=== PATIENT | female | born 1950 | race Caucasian/White ===

== ENCOUNTER 2019-02-20 03:41 | Outpatient (CLI) | payer MEDICARE, OTHER, SELFPAY ==
--- NOTE | 2019-02-20 10:24 | DI.US_ITS ---
SYMPTOMS/DIAGNOSIS: RETAINED INTRAUTERINE DEVICE, PLACED IN 1987, SURVEILLANCE, Z30.431 PELVIC ULTRASOUND: Comparison is made with March,. Transabdominal and transvaginal exams were performed. An IUD is seen within the endometrium. This does not appear changed from the previous exam. The uterus measures 4.6 x 2.8 x 4.3 cm. No fibroids are seen. The endometrium is not visible secondary to the IUD. A 1.7 cm cyst is seen on the right ovary. A 2.7 cm solid-appearing lesion with calcification is noted on the left ovary. IMPRESSION: Retained IUD within the endometrium. A 2.7 cm solid mass with calcification. A CT or MRI could be considered for further evaluation.
--- NOTE | 2019-02-20 10:24 | DI.MAMMO_ITS ---
SYMPTOM/DIAGNOSIS: SCREENING Z12.31 BILATERAL SCREENING MAMMOGRAM: Mammograms were interpreted according to the usual protocol including computer analysis with CAD system, tomosynthesis and C view imaging. Comparison is made with exams from 2011 through 2017. No suspicious masses or suspicious microcalcifications are seen. There has been no significant change. IMPRESSION: Category 1, negative mammogram. Yearly screening mammography is recommended. Breast density category B MQSA ASSESSMENT OF FINDINGS: Negative. Category 1. Patient will receive a letter notifying them of these results. BI-RADS category B. There are scattered areas of fibroglandular density.
== END 2019-02-20 04:01 ==
PROVIDERS: PCP Family Medicine; Visit Provider Nurse Practitioner Family
DX: Z30.431 Encounter for routine checking of intrauterine contraceptive device (principal); Z12.31 Encounter for screening mammogram for malignant neoplasm of breast
CPT/HCPCS: 77063; 77067; 76830; 76856

== ENCOUNTER 2019-04-10 06:07 | Day surgery (SDC) | payer MEDICARE, OTHER, SELFPAY ==
[2019-04-10 06:17] VITALS: BP 114/69; PULSE 63; RESP 16; TEMP 36.1; O2SAT 96
[2019-04-10] MEDS: Lactated Ringers 1,000 ML 125 ML IV (06:28)
--- NOTE | 2019-04-10 08:20 | ENDOMET_PTH ---
PATIENT: Holly Alejandre LOC: [facility] U#:[id number] AGE/SX: 68/F ROOM: RE04/10/[address]: Abhinav Smith MD : [id number] BED: DIS: 04/10/2019 SPEC #: [id number] RECD: 04/10/19 12:37 STATUS: CAMILO REQ #: [id number] BRISSA: 04/10/19 08:[address]: Abhinav Smith DEPT: Surgical Specimen RECD BY: Sasha Huston ENTERED: 04/10/19 12:40 SP TYPE: Endomet OTHR DR: Aliza Pride MD Tissues: 1 - FOREIGN BODY 2 - ENDOMETRIUM BX/CURRETTE Procedures: GROSS AND MICRO LEVEL 4 GROSS LEVEL 1 Comments: [id number]
[2019-04-10] MEDS: Lidocaine 1% Multi-Dose 50 ML VIAL (08:23)
[2019-04-10 08:35] VITALS: BP 91/64; PULSE 58; RESP 13; TEMP 36.7; O2SAT 100
[2019-04-10 08:40] VITALS: BP 102/71; PULSE 62; RESP 13; TEMP 36.7; O2SAT 100
[2019-04-10 08:45] VITALS: BP 103/77; PULSE 66; RESP 11; TEMP 36.7; O2SAT 2
[2019-04-10 08:55] VITALS: BP 105/68; PULSE 70; RESP 11; TEMP 36.6; O2SAT 2
--- NOTE | 2019-04-10 11:21 | W.PM.OP ---
Date of service: 04/10/19 Time of Service: 11:21 Operative Note Operative Note DATE OF PROCEDURE: 04/10/19 PRE-OP DIAGNOSIS: Retained IUD POST-OP DIAGNOSIS: same SURGEON: Abhinav Smith ANESTHESIA: ARETHA ESTIMATED BLOOD LOSS: 5 PATHOLOGY: other (1. Endometrial curettings 2. Lippes Loop IUD) COMPLICATIONS: None Patient was transported to: PACU Indications: IUD retained x 30 years Findings: 1. Lippes loop IUD 2. Intrauterine synechiae. Procedure Description: Patient was taken to the operating room and after an adequate level of general anesthesia was obtained the patient was placed in lithotomy position. The patient was prepped and draped in usual sterile manner. A weighted speculum was placed in the vagina with good visualization of the cervix. A paracervical block with 10 cc 1% plain lidocaine solution was instilled. The anterior lip of the cervix was grasped with a single-tooth tenaculum. The cervix was gently dilated with Hegar dilators. The 5 mm 30 degree hysteroscope with normal saline distention media was advanced to the cervix without difficulty. A polypoid region was noted just inferior to IUD. 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 The IUD was easily identified. The hysteroscope was removed. The cavity was explored with polyp forceps and the IUD was removed intact. A sharp curettage was performed and specimens were submitted to pathology. A second pass with a hysteroscope was made in the polypoid area was no longer noted and may simply have been artifact from the intrauterine synechiae in the IUD. The procedure was concluded at this point. All instrumentation was removed. Sponge lap and needle counts were correct conclusion of the procedure. The patient was transferred to PACU stable condition.
== END 2019-04-10 10:05 | disposition home or self-care (01) ==
PROVIDERS: PCP Family Medicine; Visit Provider Obstetrics & Gynecology
PROC: 0UDB8ZZ Extraction of Endometrium, Via Natural or Artificial Opening Endoscopic (ICD-10-PCS; CPT 58558; principal; 2019-04-10 07:30)
DX: T83.32XA Displacement of intrauterine contraceptive device, initial encounter (principal); N71.1 Chronic inflammatory disease of uterus
CPT/HCPCS: 58562; 88300; 88305; J1100; J1885; J2250; J2405; J3010

== ENCOUNTER → 2020-02-19 11:43 | Outpatient (BNVA) | payer MEDICARE, OTHER, SELFPAY | PROVIDERS: PCP Family Medicine; Referring Provider Family Medicine; Visit Provider Orthopaedic Surgery | DX: M72.0 Palmar fascial fibromatosis [Dupuytren] (principal); M65.341 Trigger finger, right ring finger | CPT/HCPCS: 99203; 99214 ==

== ENCOUNTER 2020-02-27 00:46 | Outpatient (CLI) | payer MEDICARE, OTHER, SELFPAY ==
--- NOTE | 2020-02-27 07:00 | DI.MAMMO_ITS ---
EXAM: MAMMO SCREENING CLINICAL HISTORY: screening,z12.39 TECHNIQUE: Mammograms were interpreted according to the usual protocol including computer analysis w [employer] CAD system, tomosynthesis and C-view imaging. COMPARISON: 2010 through 2018 FINDINGS: The breasts are composed of scattered fibroglandular densities, Breast Density category B. No suspicious masses or suspicious microcalcifications are seen. No skin thickening or abnormal axillary lymph nodes are seen. There has been no significant change from prior exams. IMPRESSION: BI-RADS Category 1, Negative mammogram Yearly screening mammography is recommended. Breast Density Category B, scattered fibroglandular densities. A negative radiographic report should not delay biopsy if a dominant or clinically suspicious mass is present. Up to ten percent of cancers are not identified on mammography. A negative report may reinforce clinical impression. Adenosis and dense breasts may obscure an underlying neoplasm. False positive reports average 6 to 10%. Patient will receive a letter notifying them of these results.
== END 2020-02-27 01:06 ==
PROVIDERS: PCP Family Medicine; Visit Provider Family Medicine
DX: Z12.31 Encounter for screening mammogram for malignant neoplasm of breast (principal); R92.2 Inconclusive mammogram
CPT/HCPCS: 77063; 77067

== ENCOUNTER 2020-02-27 01:36 | Outpatient (CLI) | payer MEDICARE, OTHER, SELFPAY ==
[2020-02-27 10:36] LABS: Calculated LDL 175 mg/dL (<100); Cholesterol 253 mg/dL (<200); Glucose 99 mg/dL (74-106); HDL Cholesterol 69 mg/dL (40-60); Triglyceride 46 mg/dL (<150)
== END 2020-02-27 01:56 ==
PROVIDERS: PCP Family Medicine; Visit Provider Family Medicine
DX: Z13.220 Encounter for screening for lipoid disorders (principal); Z13.1 Encounter for screening for diabetes mellitus
CPT/HCPCS: 36415; 80061; 82947

== ENCOUNTER 2020-04-03 07:52 | Outpatient (CLI) | payer MEDICARE, OTHER, SELFPAY ==
[2020-04-04 23:40] LABS: COVID-19 RT-PCR Result NEGATIVE (Negative)
== END 2020-04-03 08:12 ==
PROVIDERS: PCP Family Medicine; Visit Provider Orthopaedic Surgery
DX: Z11.59 Encounter for screening for other viral diseases (principal); Z01.818 Encounter for other preprocedural examination
CPT/HCPCS: U0003

== ENCOUNTER 2020-04-06 06:07 | Day surgery (SDC) | payer MEDICARE, OTHER, SELFPAY ==
[2020-04-06 06:20] VITALS: BP 109/70; PULSE 62; RESP 20; TEMP 36.3; O2SAT 98
[2020-04-06] MEDS: Lactated Ringers 1,000 ML 80 ML IV (07:15)
[2020-04-06] MEDS: ceFAZolin 1 GM/50 ML BAG IVPB (07:43)
--- NOTE | 2020-04-06 09:09 | PDOC.DSDIS_ITS ---
Discharge Plan Disposition Patient Disposition: HOME Condition: Good Discharge Details Attending Provider: Johnny Magallon Primary Care Provider: Aliza Pride Home Meds and New Rx's Prescriptions: New hydrocodone-acetaminophen 5-325 mg tablet 1 tab PO Q6H PRN (Reason: pain) Qty: 7 RF: 0 Discharge Instructions Additional Instructions: Try to elevate L hand above heart level as much as possible for next 48 hours. Keep dressings L hand dry until return in one week to 's office. Keep dressings on R hand dry for 48 hours. After 48 hours, may remove dressings. May then shower or bathe and get R hand incision wet. Leave incision in R palm uncovered when it is dry and sealed. Bend and straighten fingers of both hands 10 times/hour when awake to decrease swelling. May use both hands as much as your discomfort allows. Take tylenol or ibuprofen for mild pain. Take hydrocodone for breakthru pain, if needed. Follow up with in one week. Referrals: Johnny Magallon MD [ [facility] STAFF PHYSICIAN] - (f/u in one week) Activity:: Activity as Tolerated Diet:: As Tolerated Discharge Orders Discharge Orders: Discharge Order (Routine); Ordered 04/06/20 Ordered By: Johnny Magallon DS: Diagnosis Discharge Diagnosis (1) Palmar fasciitis: Status: Acute (2) Trigger finger, right ring finger: Status: Acute
[2020-04-06 09:35] VITALS: BP 121/73; PULSE 56; RESP 16; TEMP 36.2; O2SAT 100
--- NOTE | 2020-04-06 13:07 | ROE_ITS ---
Date of service: 04/06/20 Time of Service: 08:07 Operative Note Operative Note DATE OF PROCEDURE: 04/06/20 PRE-OP DIAGNOSIS: Nodular palmar fasciitis left, trigger right ring finger POST-OP DIAGNOSIS: same PROCEDURE: Partial palmar fasciectomy left Tendon sheath incision for trigger right ring finger SURGEON: Johnny Magallon REGIONAL FACILITIES MANAGER: Samantha Velarde ANESTHESIA: regional and local PATHOLOGY: none sent COMPLICATIONS: None Patient was transported to: PACU Indications: This 61-year-old white female who has noticed painful nodules in her left palm associated with a flexion contracture of the left ring finger that has gradually developed over the last 6 months. She said the nodules had become much less painful with the passage of time. She also has noted a painful locking of her right ring finger. Examination showed that she had nodular palmar fasciitis on the left causing a flexion contracture of the MP joint of the left ring finger. She also had obvious triggering of her right ring finger. Partial palmar fasciectomy was recommended to alleviate the flexion contracture of the MP joint of the left ring finger while the contracture was mild. I informed her that surgery would be much more difficult if the contracture got worse or extended to involve the PIP joint. Patient also wished to have the painful triggering of her right ring finger corrected as well. Risk and complication of the procedures were explained patient detail preop. Procedure Description: Patient taken the operating room on 03/29/2020 play supine operative table. IV regional anesthetic was administered to the left upper extremity. The left hand wrist and forearm were prepped and draped free in usual sterile fashion. A María type zigzag incision was made beginning at the ulnar side of the proximal flexion crease of the ring finger and extending to the distal edge of the volar carpal ligament in line with the ring finger. Sharp dissection was used to expose the diseased palmar fascia. Starting proximally at the distal edge of all carpal ligament the palmar fascia was incised and then sharp dissection with a scalpel and with Littler scissors was then carried from proximal to distal across the proximal flexion crease of the ring finger. The diseased palmar fascia was excised. I then performed a release of the proximal vinod of the flexor sheath of the ring finger. The wound margins were infiltrated with point 5% Marcaine with epinephrine solution. Wounds irrigated with saline solution. Skin edges were approximated interrupted 5-0 nylon sutures of the simple type and of the vertical mattress type. Wound was dressed with Xeroform gauze fluff gauze 4 x 4's between the fingers and in the palm rapidly 4 inch Kerlix bandage followed by a 3 inch Elias bandage for light compressive dressing. Patient's IV regional anesthesia was released without complications. Attention was then turned to the right hand. Patient's right hand was prepped and draped free in usual sterile fashion. Patient was able to demonstrate active triggering of her ring finger. She was also noted to have a nodule in the palm overlying the proximal vinod of the flexor sheath of the ring finger. I infiltrated the skin in the palm over the flexor sheath of the right ring finger approximately 10 mm distal to the distal palmar flexion crease with point 5% Marcaine with epinephrine solution. Once good anesthesia obtained made a transverse incision 10 mm distal to the distal palmar flexion crease centered over the flexor sheath of the right ring finger. I extended the incision radially and ulnarly to allow excision of the subcutaneous nodule. Sharp dissection was used to free the fibrous nodule from the overlying the plantar skin. The nodule was then excised. The flexor sheath of the ring finger was exposed using blunt tipped Littler scissors to mobilize the soft tissues. Under direct vision the flexor sheath is incised. The incision is then completed proximally and distally with Littler scissors to completely release the proximal vinod. Patient was then asked to actively flex and extend her fingers of her right hand. There was no longer any locking or triggering of the ring finger. Wound was irrigated with saline solution. The wound edges were approximated with 3 interrupted 4 nylon sutures. Wounds dressed with Xeroform gauze fluff gauze 4 x 4's and wrapped with a 2 inch Ayde bandage. Patient tolerated both procedure well and was discharged to the day surgery unit in good condition. Patient was discharged home from day surgery unit and fully recovered from her IV regional anesthesia. She was given printed instructions to keep the dressings on both hands dry. She may remove the dressings on her right hand in 48 hours. She will leave the dressings on the left hand intact until she follows up in Dr. Magallon's office in 1 week. When the dressings are removed from the right hand she may shower bathe and get the incision wet. She will leave the incision uncovered when is dry and sealed. She will take Tylenol or ibuprofen for mild pain. She is given prescription for breakthrough pain of hydrocodone with APAP 11/09/2024, 1 tablet p.o. every 6 hours as needed for breakthrough pain.
== END 2020-04-06 10:05 | disposition home or self-care (01) ==
PROVIDERS: PCP Family Medicine; Visit Provider Orthopaedic Surgery
PROC: (CPT 26121; principal; 2020-04-06 07:30)
PROC: (CPT 26055; 2020-04-06 07:30)
DX: M72.0 Palmar fascial fibromatosis [Dupuytren] (principal); M65.341 Trigger finger, right ring finger; E78.5 Hyperlipidemia, unspecified
CPT/HCPCS: 26121; 26055; J0690; J2250; J3010

== ENCOUNTER → 2020-04-14 10:22 | Outpatient (BNVA) | payer MEDICARE, OTHER, SELFPAY | PROVIDERS: PCP Family Medicine; Referring Provider Family Medicine; Visit Provider Orthopaedic Surgery | DX: Z47.89 Encounter for other orthopedic aftercare (principal); M65.341 Trigger finger, right ring finger; M72.0 Palmar fascial fibromatosis [Dupuytren] ==

== ENCOUNTER → 2020-04-21 09:50 | Outpatient (BNVA) | payer MEDICARE, OTHER, SELFPAY | PROVIDERS: PCP Family Medicine; Referring Provider Family Medicine; Visit Provider Orthopaedic Surgery | DX: Z47.89 Encounter for other orthopedic aftercare (principal); M72.0 Palmar fascial fibromatosis [Dupuytren]; M65.341 Trigger finger, right ring finger ==

== ENCOUNTER → 2020-05-05 10:35 | Outpatient (BNVA) | payer MEDICARE, OTHER, SELFPAY | PROVIDERS: PCP Family Medicine; Referring Provider Family Medicine; Visit Provider Orthopaedic Surgery | DX: Z47.89 Encounter for other orthopedic aftercare (principal); M65.341 Trigger finger, right ring finger; M72.0 Palmar fascial fibromatosis [Dupuytren] ==

== ENCOUNTER 2021-03-09 01:23 | Outpatient (CLI) | payer MEDICARE, OTHER, SELFPAY ==
--- NOTE | 2021-03-09 08:30 | DI.MAMMO_ITS ---
Exam(s) MAMMO SCREENING EXAM: MAMMO SCREENING CLINICAL HISTORY: screening,Z12.39 TECHNIQUE: Bilateral full field digital CC and MLO mammographic images were obtained with 3D tomosyn thesis and utilizing computer aided detection (CAD). COMPARISON: Available for comparison. FINDINGS: Masses/Architectural Distortion: None seen. Microcalcifications: No suspicious pleomorphic-type are seen. Skin Thickening/Nipple Retraction: None. IMPRESSION: 1. No significant interval change with no specific features of malignancy noted. 2. Unless there is more urgent need, screening mammography is recommended, as per [place] guidelines. BI-RADS Category 1 - Negative Breast Density - Category B - Scattered areas of fibroglandular density Breast density category C or D implies that the patient has dense breast tissue. Dense breast tissue is very common and is not abnormal but dense breast tissue can make it harder to find cancer on a ma mmogram. Also, dense breast tissue may increase their breast cancer risk. This information about the result of the mammogram report was provided to the patient to raise their awareness. Use this report when you speak with the patient about their risks for breast cancer, which includes their family hist ory. At that time, you may recommend for more screening tests (Ultrasound or MRI) as they might be us eful based on their risk. A negative radiographic report should not delay biopsy if a dominant or clinically suspicious mass is present. Up to ten percent of cancers are not identified on mammography. A negative report may reinforce clinical impression. Adenosis and dense breasts may obscure an underlying neoplasm. False positive reports average 6 to 10%. Patient will receive a letter notifying them of these results.
--- NOTE | 2021-03-09 08:30 | DI.RAD_ITS ---
Exam(s) XR CHEST 2V PA LATERAL EXAM: XR CHEST 2V PA LATERAL CLINICAL HISTORY: chronic cough,R05 TECHNIQUE: 2D digital imaging was performed. COMPARISON: No exams were available for comparison FINDINGS: MEDIASTINUM: Normal. HEART: Normal. PULMONARY VASCULATURE: Normal. LUNGS: There is a question of a 1 cm nodule in the inferior aspect of the right lung. This may repre sent a summation of shadows. A nodule cannot be excluded. PLEURAL SPACE: No pleural effusion or pneumothorax. BONE:Within normal limits for the patient's age. There is a mild right convex curvature of the thora columbar spine. OTHER FINDINGS:Normal. IMPRESSION: 1. No acute pulmonary findings. 2. Question 1 cm nodule in the inferior right lung. CT scan of the chest is recommended for further evaluation. DATA REPOSITORY: RADIATION DOSE DELIVERED:
== END 2021-03-09 01:43 ==
PROVIDERS: PCP Family Medicine; Visit Provider Family Medicine
DX: Z12.31 Encounter for screening mammogram for malignant neoplasm of breast (principal); R05 Cough; R91.1 Solitary pulmonary nodule
CPT/HCPCS: 77063; 77067; 71046

== ENCOUNTER 2021-04-29 01:46 | Outpatient (CLI) | payer MEDICARE, OTHER, SELFPAY ==
--- NOTE | 2021-04-29 08:15 | DI.CT_ITS ---
Exam(s) CT CHEST WO EXAM: CT CHEST WO CLINICAL HISTORY: 1cm inferior right lung seen on chest XRAY, lung nodule, R91.1. TECHNIQUE: Multi planar reconstructions were performed. CONTRAST MATERIAL: None COMPARISON: CR XR CHEST 2V PA LATERAL from 03/09/2021 CR XR CHEST 2V PA LATERAL from 03/09/2021 FINDINGS: CHEST: LUNGS: There are no concerning lung nodules. The possible nodular density described in the right rach g on the recent chest x-ray of 03/09/[address] is not seen on CT scan. Most probably was a summation of s hadows. There are no confluent infiltrates. No pleural effusions. No significant focal findings in the trachea and mainstem bronchi. MEDIASTINUM: There is no obvious hilar nor mediastinal adenopathy. Visualized thyroid unremarkable.No obvious axillary adenopathy CARDIAC: Heart size is normal. There is no pericardial effusion.Caliber of the thoracic aorta is wit hin normal limits. VISUALIZED UPPER ABDOMEN: OSSEOUS: No significant osseous lesions.. IMPRESSION: 1. No significant lung findings. No evidence of significant nodule, as per request 2. No pleural effusions nor intrathoracic adenopathy. RADIATION DOSE DELIVERED: 440.82mGy.cm Total DLP DATA REPOSITORY: All CT scans at this facility are submitted to the National Radiology Data Registry (NRDR) Dose Index Registry (DIR) with the [employer] (A[employer]). RADIATION OPTIMIZATION: All CT scans at this facility use at least one of these dose optimization te chniques: automated exposure control; mA and/or kV adjustment per patient size (includes targeted exa ms where dose is matched to clinical indication); or iterative reconstruction.
== END 2021-04-29 02:06 ==
PROVIDERS: PCP Family Medicine; Visit Provider Family Medicine
DX: R91.1 Solitary pulmonary nodule (principal)
CPT/HCPCS: 71250

== ENCOUNTER → 2022-03-21 01:38 | Outpatient (CLI) | payer MEDICARE, OTHER, SELFPAY ==
--- NOTE | 2022-03-21 08:00 | DI.MAMMO_ITS ---
Exam(s) MAMMO SCREENING EXAM: MAMMO SCREENING CLINICAL HISTORY: screening,Z12.39. TECHNIQUE: Bilateral full field digital CC and MLO mammographic images were obtained with 3D tomosyn thesis and utilizing computer aided detection (CAD). COMPARISON: Prior mammograms were reviewed, the most recent being February 2021. FINDINGS: No new significant radiograph findings in the right breast. In the left breast there is an asymmetric density measuring 6 x 4 millimeters seen on the MLO view lo cated 7 0.5 cm in from the nipple. This is more evident prior mammograms. Spot compression view and ultrasound recommended. There is no significant architectural distortion nor skin thickening-retraction. IMPRESSION: No radiographic evidence of malignancy in the right breast. Asymmetric density-possible nodule left breast MLO view. Spot compression view and ultrasound recomm ended BI-RADS Category 0 - Assessment Incomplete: Need additional imaging evaluation Breast Density - Category B - Scattered areas of fibroglandular density Breast density Category C or D implies that the patient has dense breast tissue. Dense breast tissue can make it harder to find cancer on a mammogram. Dense breast tissue is also associated with an incr eased risk of breast cancer. This information about the result of the mammogram report was provided to the patient to raise their awareness. Use this report when you speak with the patient about their risks for breast cancer, which includes their family history. At that time, you may recommend additional screening tests (Ultrasoun d or MRI) as these tests may add significant information. A negative radiographic report should not delay biopsy if a dominant or clinically suspicious mass is present. Up to ten percent of cancers are not identified on mammography. A negative report may reinforce clinical impression. Adenosis and dense breasts may obscure an underlying neoplasm. False positive reports average 6 to 10%. Patient will receive a letter notifying them of these results.
== END ==
PROVIDERS: PCP Family Medicine; Visit Provider Family Medicine
DX: Z12.31 Encounter for screening mammogram for malignant neoplasm of breast (principal); R92.8 Other abnormal and inconclusive findings on diagnostic imaging of breast
CPT/HCPCS: 77063; 77067

== ENCOUNTER → 2022-03-24 01:38 | Outpatient (CLI) | payer MEDICARE, OTHER, SELFPAY ==
--- NOTE | 2022-03-24 07:15 | DI.MAMMO_ITS ---
Exam(s) MG MAMMO SCREEN CALL BACK UNI US BREAST LT LIMITED EXAM: MG MAMMO SCREEN CALL BACK UNI and U/S breast LT limited CLINICAL HISTORY: Follow-up abnormal mammo,r92.8,asymmetric density. TECHNIQUE: Craniocaudal and mediolateral oblique Full Field Digital Mammography views of the left br east with Computer Aided Diagnosis followed by Tomosynthesis and left breast ultrasound. COMPARISON: Comparison is made with prior examinations. FINDINGS: Mammography/Tomosynthesis: Masses/Architectural Distortion: None seen. Microcalcifictions: No suspicious pleomorphic-type are seen. Skin Thickening/Nipple Retraction: None. Limited left breast US: Echotexture: Normal appearance of the glandular tissue. Shadowing: No suspicious foci. Cyst: There is a 0.3 x 0.2 x 0.2 cm simple cyst at the 11 o'clock position of the left breast 3 cm fr om the nipple. It would not correspond to the mammographic abnormality. Solid lesions: None seen. Ductal dilation: None. IMPRESSION: 1. No evidence of malignancy is noted. 2. Unless there is more urgent need, follow-up screening mammography is recommended, as per [employer] guidelines. 3. The findings were discussed with the patient on the date of the examination. BI-RADS Category 2 - Benign Findings Breast Density - Category B - Scattered areas of fibroglandular density Breast density Category C or D implies that the patient has dense breast tissue. Dense breast tissue can make it harder to find cancer on a mammogram. Dense breast tissue is also associated with an incr eased risk of breast cancer. This information about the result of the mammogram report was provided to the patient to raise their awareness. Use this report when you speak with the patient about their risks for breast cancer, which includes their family history. At that time, you may recommend additional screening tests (Ultrasoun d or MRI) as these tests may add significant information. A negative radiographic report should not delay biopsy if a dominant or clinically suspicious mass is present. Up to ten percent of cancers are not identified on mammography. A negative report may reinforce clinical impression. Adenosis and dense breasts may obscure an underlying neoplasm. False positive reports average 6 to 10%. Patient will receive a letter notifying them of these results.
== END ==
PROVIDERS: PCP Family Medicine; Visit Provider Family Medicine
DX: Z12.31 Encounter for screening mammogram for malignant neoplasm of breast (principal); R92.8 Other abnormal and inconclusive findings on diagnostic imaging of breast
CPT/HCPCS: 76642; 77063; 77067

== ENCOUNTER 2022-03-30 02:59 | Outpatient (CLI) | payer MEDICARE, OTHER, SELFPAY ==
[2022-03-30 12:26] LABS: Abs Immature Grans 0.01 10^3/uL (0.0-0.06); Absolute Basophil Count 0.11 10^3/uL (0.0-0.2); Absolute Eosinophil Count 0.23 10^3/uL (0.0-0.7); Absolute Lymphocyte Count 1.75 10^3/uL (1.2-3.4); Absolute Monocyte Count 0.52 10^3/uL (0.1-0.8); Absolute Neutrophil Count 4.28 10^3/uL (1.2-6.7); Basophils % 1.6; Eosinophils % 3.3; HCT 44.2 % (36.0-46.0); HGB 14.6 g/dL (11.2-15.7); Immature Grans % 0.1; Lymphocytes % 25.4; MCH 30.5 pg (27.0-33.0); MCV 92 fL (80-95); MPV 10.7 fL (8.0-11.0); Monocytes % 7.5; Neutrophils % 62.1; Platelet Count 286 10^3/uL (130-400); RBC 4.79 10^6/uL (3.93-5.22); RDW 13.3 % (11.7-14.6); RDW-SD 45.1 fL
[2022-03-30 12:50] LABS: ALT 32 U/L (14-59); AST 24 U/L (15-37); Albumin 4.1 g/dL (3.4-5.0); Alkaline Phosphatase 68 U/L (46-116); Anion Gap 6.8 mmol/L (3-11); BUN 17 mg/dL (7-18); Bilirubin, Total 0.6 mg/dL (0.2-1.0); CO2 30.2 mmol/L (21.0-32.0); CREATININE 0.8 mg/dL (0.55-1.02); Calcium 9.5 mg/dL (8.5-10.1); Calculated LDL 164 mg/dL (<100); Chloride 102 mmol/L (98-107); Cholesterol 244 mg/dL (<200); Estimated GFR 79.22 (mL/min/1.73m2); Glucose 99 mg/dL (74-106); HDL Cholesterol 69 mg/dL (40-60); Sodium 139 mmol/L (136-145); TSH (W/Ref FT4) 4.44 uIU/mL (0.36-3.74); Total Protein 7.6 g/dL (6.4-8.2); Triglyceride 56 mg/dL (<150)
[2022-03-30 13:09] LABS: FREE T4 0.76 ng/dL (0.76-1.46)
== END 2022-03-30 03:00 | disposition home or self-care (01) ==
LOC: LOS 03:00
PROVIDERS: PCP Family Medicine; Visit Provider Family Medicine
DX: E78.5 Hyperlipidemia, unspecified (principal); Z00.00 Encounter for general adult medical examination without abnormal findings; L29.9 Pruritus, unspecified
CPT/HCPCS: 36415; 80053; 80061; 84439; 84443; 85025

== ENCOUNTER 2023-04-07 11:10 | Outpatient (CLI) | payer MEDICARE, OTHER, SELFPAY ==
[2023-04-07 12:50] LABS: Calculated LDL 144 mg/dL (<100); Cholesterol 229 mg/dL (<200); HDL Cholesterol 68 mg/dL (40-60); TSH (W/Ref FT4) 3.22 uIU/mL (0.36-3.74); Triglyceride 86 mg/dL (<150)
== END 2023-04-07 11:11 | disposition home or self-care (01) ==
LOC: LOS 11:11
PROVIDERS: PCP Family Medicine; Referring Provider Family Medicine; Visit Provider Family Medicine
DX: E03.9 Hypothyroidism, unspecified (principal); E78.5 Hyperlipidemia, unspecified
CPT/HCPCS: 36415; 80061; 84443

== ENCOUNTER → 2023-04-21 03:00 | Outpatient (CLI) | payer MEDICARE, OTHER, SELFPAY ==
--- NOTE | 2023-04-21 08:00 | DI.DEXA_ITS ---
Exam(s) XR DEXA BONE DENSITY W/WO ALICIA EXAM: XR DEXA BONE DENSITY W/WO ALICIA CLINICAL HISTORY: screening,menopausal disorder, n95.9 TECHNIQUE: [employer] C densitometer analysis of left hip, lumbar spine and left forearm. Lat eral survey image of the thoracic and lumbar spine. COMPARISON: No exams were available for comparison FINDINGS: Lateral view of the thoracic and lumbar spine shows no evidence of compression fractures. Bone mineral density measurements of the lumbar spine correspond to a total T-score of 0.9, in the n ormal range. Bone mineral density measurements of the left hip correspond to a total T-score of -1.3. The femora l neck T-score is -1.0, in the mildly osteopenic range.. Theleft forearm bone mineral density measurements correspond to a T-score of the distal 3rd of the 1 .0, the lower limit of normal.. IMPRESSION: Impression normal bone mineral density of the spine and forearm. Mild osteopenia of the hip.
--- NOTE | 2023-04-21 08:00 | DI.MAMMO_ITS ---
Exam(s) MAMMO SCREENING EXAM: MAMMO SCREENING CLINICAL HISTORY: screening, z12.39 TECHNIQUE: Mammograms were interpreted according to the usual protocol including computer analysis w [employer] CAD system, tomosynthesis and C-view imaging. COMPARISON: 2013 through 2021 FINDINGS: The breasts are composed of scattered fibroglandular densities, Breast Density category B. No suspicious masses or suspicious microcalcifications are seen. No skin thickening or abnormal axillary lymph nodes are seen. There has been no significant change from prior exams. IMPRESSION: BI-RADS Category 1, Negative mammogram Yearly screening mammography is recommended. Breast Density - Category B, scattered fibroglandular densities. A negative radiographic report should not delay biopsy if a dominant or clinically suspicious mass is present. Up to ten percent of cancers are not identified on mammography. A negative report may reinforce clinical impression. Adenosis and dense breasts may obscure an underlying neoplasm. False positive reports average 6 to 10%. Patient will receive a letter notifying them of these results.
== END ==
PROVIDERS: PCP Family Medicine; Visit Provider Family Medicine
DX: Z12.31 Encounter for screening mammogram for malignant neoplasm of breast (principal); Z80.3 Family history of malignant neoplasm of breast; Z13.820 Encounter for screening for osteoporosis; M85.89 Other specified disorders of bone density and structure, multiple sites
CPT/HCPCS: 77063; 77067; 77080

== ENCOUNTER 2024-04-22 01:25 | Outpatient (CLI) | payer MEDICARE, OTHER, SELFPAY ==
--- NOTE | 2024-04-22 15:26 | DI.RAD_ITS ---
Exam(s) XR KNEE RT 3V AP,LAT,SOILA EXAM: XR KNEE RT 3V AP,LAT,SOILA CLINICAL HISTORY: right knee pain M25.561 PAIN RT KNEE G89.29 CHRONIC PAIN. TECHNIQUE: 2D digital imaging was performed. COMPARISON: No exams were available for comparison FINDINGS: 3 views No evidence of fracture nor prominent joint effusion. There are moderate degenerative changes in the medial compartment and mild degenerative changes in the lateral compartment. Bone density age-appro priate. No osseous lesions. Incidentally noted is a thin metallic radiopaque foreign body evident over the lateral aspect of this subcutaneous soft tissues. This may be clinically significant. IMPRESSION: Medial compartment degenerative changes. Radiopaque foreign body in soft tissues as above. DATA REPOSITORY: RADIATION DOSE DELIVERED:
== END 2024-04-22 01:45 ==
LOC: DI 01:25
PROVIDERS: PCP Family Medicine; Visit Provider Family Medicine
DX: M25.561 Pain in right knee (principal)
CPT/HCPCS: 73562

== ENCOUNTER 2024-04-30 01:00 | Outpatient (CLI) | payer MEDICARE, OTHER, SELFPAY ==
--- NOTE | 2024-04-30 07:45 | DI.MAMMO_ITS ---
Exam(s) MAMMO SCREENING EXAM: MAMMO SCREENING CLINICAL HISTORY: screening,z12.39. TECHNIQUE: Bilateral full field digital CC and MLO mammographic images were obtained with 3D tomosyn thesis and utilizing computer aided detection (CAD). COMPARISON: Prior mammograms were reviewed. Prior ultrasound examination 03/24/2022 was also reviewed. FINDINGS: There has been no significant change in the appearance and distribution of the fibroglandular tissue. There are no CAD designations on today's study. There are no new spiculated masses nor malignant appearing microcalcification groups. There is no significant architectural distortion nor skin thickening-retraction. IMPRESSION: No radiographic evidence of malignancy. BI-RADS Category 1 - Negative Breast Density - Category B - Scattered areas of fibroglandular density Breast density Category C or D implies that the patient has dense breast tissue. Dense breast tissue can make it harder to find cancer on a mammogram. Dense breast tissue is also associated with an incr eased risk of breast cancer. This information about the result of the mammogram report was provided to the patient to raise their awareness. Use this report when you speak with the patient about their risks for breast cancer, which includes their family history. At that time, you may recommend additional screening tests (Ultrasoun d or MRI) as these tests may add significant information. A negative radiographic report should not delay biopsy if a dominant or clinically suspicious mass is present. Up to ten percent of cancers are not identified on mammography. A negative report may reinforce clinical impression. Adenosis and dense breasts may obscure an underlying neoplasm. False positive reports average 6 to 10%. Patient will receive a letter notifying them of these results.
== END 2024-04-30 01:20 ==
LOC: DI 01:01
PROVIDERS: PCP Family Medicine; Visit Provider Family Medicine
DX: Z12.31 Encounter for screening mammogram for malignant neoplasm of breast (principal)
CPT/HCPCS: 77063; 77067

== ENCOUNTER 2024-08-01 02:40 | Outpatient (CLI) | payer MEDICARE, OTHER, SELFPAY ==
--- NOTE | 2024-08-01 07:15 | DI.RAD_ITS ---
Exam(s) XR HIP LT COMPLETE AP PELVIS EXAM: XR HIP LT COMPLETE AP PELVIS CLINICAL HISTORY: left hip pain,lt inguinal pain,llq pain,r10.32. TECHNIQUE: 2D digital imaging was performed. Two views. COMPARISON: No exams were available for comparison FINDINGS: BONES: No acute fracture is present. No bony destructive lesion is seen. JOINTS: No dislocation present. The SI joints and pubic symphysis are intact. There is mild bilateral hip joint space narrowing and mild to moderate acetabular spurring, greater inferiorly on the left. Spurring is also seen at the margin of the left femoral head. There are subchondral cysts in the ac etabulum. SOFT TISSUE: Normal. IMPRESSION: Moderate degenerative changes of the left hip. DATA REPOSITORY: RADIATION DOSE DELIVERED:
== END 2024-08-01 03:00 ==
LOC: DI 02:40
PROVIDERS: PCP Family Medicine; Visit Provider Family Medicine
DX: R10.32 Left lower quadrant pain (principal)
CPT/HCPCS: 73502

== ENCOUNTER 2025-04-25 09:16 | Outpatient (CLI) | payer MEDICARE, OTHER, SELFPAY ==
[2025-04-25 15:08] LABS: Calculated LDL 167 mg/dL (<100); Cholesterol 250 mg/dL (<200); HDL Cholesterol 68 mg/dL (>or=50); Triglyceride 78 mg/dL (<150)
== END 2025-04-25 09:17 | disposition home or self-care (01) ==
PROVIDERS: PCP Family Medicine; Visit Provider Family Medicine
DX: Z13.6 Encounter for screening for cardiovascular disorders (principal); E78.5 Hyperlipidemia, unspecified; Z91.89 Other specified personal risk factors, not elsewhere classified
CPT/HCPCS: 36415; 80061; 83695